=== PATIENT | female | born 1990 | race Caucasian/White ===

== ENCOUNTER 2018-11-10 21:47 | Emergency (ER) | payer SELFPAY ==
[2018-11-10] MEDS ORDERED: FLUCONAZOLE 100 MG TAB PO ONE (22:52)
[2018-11-10] MEDS ORDERED: CIPROFLOXACIN 500 MG TAB PO ONE (23:27)
[2018-11-10] MEDS ORDERED: AZITHROMYCIN 250 MG TAB PO ONE (23:27)
--- NOTE | 2018-11-10 23:41 | ED.PDOC ---
History of Present Illness - General Chief Complaint: Problem Stated Complaint: vag discharge, rash, pain Time Seen by Provider: 11/10/18 21:50 Source: patient Exam Limitations: no limitations - History of Present Illness Initial Comments: The patient is a 29-year-old female presenting to the emergency room secondary to some vaginal discharge with associated itch for the last 3-4 days. It is painful. No obvious external lesions. She has been using topical cream only. No real deeper pelvic pain. Mild urinary symptoms. No fever. No flank pain. Timing/Duration: other - 3 days Severity: moderate Improving Factors: nothing Worsening Factors: nothing Associated Symptoms: denies symptoms Allergies/Adverse Reactions: Allergies NO KNOWN ALLERGY Allergy (Verified 11/10/18 22:19) Home Medications: Ambulatory Orders Ciprofloxacin [Cipro] 500 mg PO BID #14 tab 11/10/18 Review of Systems - Review of Systems Constitutional: States: no symptoms reported EENTM: States: no symptoms reported Respiratory: States: no symptoms reported Cardiology: States: no symptoms reported Gastrointestinal/Abdominal: States: no symptoms reported Genitourinary: States: see HPI Musculoskeletal: States: no symptoms reported Skin: States: no symptoms reported Neurological: States: no symptoms reported Endocrine: States: no symptoms reported All other Systems: No Change from Baseline Physical Exam - Physical Exam General Appearance: Alert, Comfortable, No apparent distress Eye Exam: bilateral normal Ears, Nose, Throat: hearing grossly normal Neck: full range of motion Respiratory: no respiratory distress, no accessory muscle use Cardiovascular/Chest: normal peripheral pulses, no edema, other - regular rate Peripheral Pulses: radial,right: 2+, radial,left: 2+ Gastrointestinal/Abdominal: non tender, soft Rectal Exam: other - minimal obvious discharge. No significant external lesions. No obvious cervical motion tenderness. Back Exam: no CVA tenderness, no vertebral tenderness Extremity: non-tender, normal inspection, no pedal edema, normal capillary refill Neurologic: game tester II-XII nml as tested, alert, normal mood/affect, oriented x 3 Skin Exam: normal color Progress - Progress Progress: 11/10/18 23:39 the patient is a 28-year-old female presenting to the emergency room with vaginal discharge and irritation. Urinalysis does show inflammatory cells and some bacteria. She is going to be treated empirically with a dose of azithromycin and 7 days of oral ciprofloxacin. She did receive 1 dose of Diflucan. No evidence of Trichomonas on wet prep. GC and chlamydia tests are sent out. she needs to follow-up with her primary care doctor in 1 week for a repeat urinalysis. Pelvic rest is recommended. ER warnings were given for any acute worsening. - Results/Orders Results/Orders: Laboratory Tests 11/10/18 11/10/18 22:20 22:21 Urine Color Yellow Urine Appearance Sl cloudy Urine pH 7.0 Ur Specific [place] 1.025 Urine Protein Trace Urine Glucose (UA) Negative Urine Ketones Trace Urine Blood Small H Urine Nitrite Negative Urine Bilirubin Negative Urine Urobilinogen 0.2 Ur Leukocyte Esterase Trace H Urine RBC 1-3 Urine WBC 10-20 H Ur Epithelial Cells 10-20 Urine Bacteria 4+ H Urine Mucus Small Urine HCG, Qual Negative wet prep shows moderate bacteria and a few small clue cells. Departure - Departure Clinical Impression: Cystitis Vaginitis Qualifiers: Chronicity: acute Qualified Code(s): N76.0 - Acute vaginitis Disposition: Discharge to Home or Self Care Condition: Fair Departure Forms: ED Discharge - Pt. Copy, Patient Portal Self Enrollment Diet: regular diet Activity: increase activity as tolerated Prescriptions: Ciprofloxacin [Cipro] 500 mg PO BID #14 tab Home Medications: Ambulatory Orders Ciprofloxacin [Cipro] 500 mg PO BID #14 tab 11/10/18 Additional Instructions: the patient is a 28-year-old female presenting to the emergency room with vaginal discharge and irritation. Urinalysis does show inflammatory cells and some bacteria. She is going to be treated empirically with a dose of azithromycin and 7 days of oral ciprofloxacin. She did receive 1 dose of Diflucan. No evidence of Trichomonas on wet prep. GC and chlamydia tests are sent out. she needs to follow-up with her primary care doctor in 1 week for a repeat urinalysis. Pelvic rest is recommended. ER warnings were given for any acute worsening.
[2018-11-10] MEDS ORDERED: metroNIDAZOLE 500 MG TAB PO ONE (23:42)
[2018-11-10 23:52] VITALS: BP 124/84; TEMP 97.4; O2SAT 98
== END 2018-11-10 23:45 | disposition home or self-care (01) ==
LOC: ER 21:47
DX: N76.0 Acute vaginitis (principal); N30.90 Cystitis, unspecified without hematuria
CPT/HCPCS: 81001; 81025; 87086; 87210; 87491; 87591; Q0144

== ENCOUNTER 2019-01-11 | Emergency (ER) | payer SELFPAY | END 2019-01-11 12:05 | disposition home or self-care (01) | CPT/HCPCS: 71046; 94640; J7512; J7620 ==